=== PATIENT | female | born 1970 | race Caucasian/White ===

== ENCOUNTER 2020-02-21 10:14 | Emergency (ER) | payer BC, OTHER ==
[2020-02-21 10:25] VITALS: TEMP 98.6; BMI 35.4
--- OUTSIDE RECORDS SUMMARY | 2020-02-21 10:35 | XMS ---
:1970 Author Organization [facility] Support Name Relationship Address Phone [facility] Unavailable [address] [phone] [place] [address] [address] [place] [address] Re-disclosure Warning The records that you are about to access may contain information from federally- assisted alcohol or drug abuse programs. If such information is present, then the following federally mandated warning applies: This information has been disclosed to you from records protected by federal confidentiality rules (42 CFR part 2). The federal rules prohibit you from making any further disclosure of this information unless further disclosure is expressly permitted by the written consent of the person to whom it pertains or as otherwise permitted by 42 CFR part 2. A general authorization for the release of medical or other information is NOT sufficient for this purpose. The Federal rules restrict any use of the information to criminally investigate or prosecute any alcohol or drug abuse patient.The records that you are about to access may contain highly sensitive health information, the redisclosure of which is protected by Article 27-F of the [facility] Public Health law. If you continue you may haveaccess to information: Regarding HIV / AIDS; Provided by facilities licensed or operated by the [facility] Office of Mental Health; or Provided by the [facility] Office for People With Developmental Disabilities. If such information is present, then the following [facility] mandated warning applies: This information has been disclosed to you from confidential records which are protected by state law. State law prohibits you from making any further disclosure of this information without the specific written consent of the person to whom it pertains, or as otherwise permitted by law. Any unauthorized further disclosure in violation of state law may result in a fine or senior living sentence or both. A general authorization for the release of medical or other information is NOT sufficient authorization for further disclosure. Insurance Providers Payer name Policy type / Policy ID Covered Covered democrat's Policy Plan Coverage type democrat ID relationship to Elizabeth Information elizabeth GHI CBP [id number] SP [id number] [id number] 1 BC PPO [id number] SP [id number] Results ID Date Data Source [id number] 01/28/2020 05:12:00 PM EDT [facility] Name Value Range Interpretation Description Data Sup porting Code Source(s) Document(s ) SARS [facility] coronavirus 2 RNA [Presence] in Unspecified specimen by TEZ with probe detection This lab was ordered by [facility] and reported by [employer]. ID Date Data Source [id number] 01/09/2020 12:00:00 AM EDT [facility] Name Value Range Interpretation Code Description Data Lea rce(s) Supporting Document(s ) 2019-nCoV [facility] RNA XXX TEZ+probe- Imp This lab was ordered by [facility] and reported by [employer] Procedure
[2020-02-21] MEDS ORDERED: SODIUM CHLORIDE 1,000 ML IV STA (10:54)
--- NOTE | 2020-02-21 11:04 | PDOC ---
History of Present Illness - General Chief Complaint: Pain Stated Complaint: STOMACH PAIN Time Seen by Provider: 02/21/20 10:40 History Source: Patient Exam Limitations: No Limitations - History of Present Illness Travel History: No Initial Comments: 02/21/20 10:56 HISTORY OF PRESENT ILLNESS: 49-year-old woman with past medical history of "bacteria in my stomach" who presents to the emergency department for evaluation of abdominal cramping since January 11. Patient reports the pain came on as a cramping sensation which she describes as "twisting of my guts" in January for which she has taken herbal remedies such as lemon juice and garlic with adequate relief of her symptoms although consistently presents but not affecting her life. Over the past 3 days the pain has increased in intensity over the same quality. She states the pain started in the upper abdomen and now she reports is throughout her abdomen. She denies any nausea, vomiting, diarrhea, constipation, dysuria, hematuria, rectal bleeding, vaginal bleeding, vaginal discharge. No recent travel or sick contacts. PAST MEDICAL HISTORY: See HPI SURGICAL HISTORY: Denies ALLERGIES: No known drug allergies REVIEW OF SYSTEMS General/Constitutional: Denies fever or chills. Denies weakness, weight change. HEENT: Denies change in vision. Denies ear pain or discharge. Denies sore throat. Cardiovascular: Denies chest pain or shortness of breath. Respiratory: Denies cough, wheezing, or hemoptysis. Gastrointestinal: See HPI Genitourinary: Denies dysuria, frequency, or change in urination. Musculoskeletal: Denies joint or muscle swelling or pain. Denies neck or back pain. Skin and breasts: Denies rash or easy bruising. Neurologic: Denies headache, vertigo, loss of consciousness, or loss of sensation. Psychiatric: Denies depression or anxiety. Endocrine: Denies increased thirst. Denies abnormal weight change. Hematologic/Lymphatic: Denies anemia, easy bleeding, or history of blood clots. Allergic/Immunologic: Denies hives or skin allergy. Denies latex allergy. PHYSICAL EXAM General Appearance: Well-appearing, appropriately dressed. No apparent distress, no intoxication. HEENT: EOMI, PERRLA, normal ENT inspection, normal voice, TMs normal, pharynx normal. No conjunctival pallor. No photophobia, scleral icterus. Neck: Supple. Trachea midline. No tenderness, rigidity, carotid bruit, stridor, lymphadenopathy, or thyromegaly. Respiratory/Chest: Lungs CTAB. No shortness of breath, chest tenderness, respiratory distress, accessory muscle use. No crackles, rales, rhonchi, stridor, wheezing, dullness Cardiovascular: RRR. S1, S2. No JVD, murmur, bradycardia, tachycardia. Vascular Pulses: Dorsalis-Pedis (R): 2+, Dorsalis-Pedis (L): 2+ Gastrointestinal/Abdominal: Normal bowel sounds. Abdomen soft, non-distended. Right upper quadrant tenderness with guarding. Tender to the left upper and left lower quadrants without guarding. No organomegaly, pulsatile mass, hernia, hepatomegaly, splenomegaly. No CVA tenderness elicited. Past History - Medical History Allergies/Adverse Reactions: Allergies Allergy/AdvReac Type Severity Reaction Status Date / Time No Known Allergies Allergy Verified 02/21/20 10:23 COPD: No - Reproductive History Is Patient Now?: No - Immunization History Immunization Up to Date: No - Psycho-Social/Smoking History Smoking History: Never smoked *Physical Exam - Vital Signs Last Vital Signs Temp Pulse Resp BP Pulse Ox 98.6 F 74 18 106/83 100 02/21/20 10:23 02/21/20 10:23 02/21/20 10:23 02/21/20 10:23 02/21/20 10:23 ED Treatment Course - LABORATORY CBC & Chemistry Diagram: 02/21/20 11:15 02/21/20 11:15 - RADIOLOGY Radiology Studies Ordered: Category Date Time Status GALLBLADDER US [US] Stat Ultrasound 02/21/20 10:55 Ordered Medical Decision Making - Medical Decision Making 02/21/20 11:04 A/P: 49-year-old woman with waxing and waning abdominal pain for 6 weeks worse over the past 3 days Tender to the right upper quadrant with guarding. Tenderness in the left upper and left lower quadrants without guarding Differential diagnosis includes but is not limited to-cholecystitis, pancreatitis, choledocholithiasis, GERD, H. pylori, extensive diverticulitis. Labs including lipase Urinalysis, urine , urine culture Right upper quadrant ultrasound Normal saline 1 L IV bolus Patient is refusing analgesia at this time Reassess 02/21/20 11:56 Laboratory Tests 02/21/20 02/21/20 02/21/20 11:15 11:15 11:15 WBC 9.1 RBC 4.75 Hgb 14.1 Hct 41.7 MCV 87.8 MCH 29.6 MCHC 33.7 RDW 13.3 Plt Count 376 MPV 8.6 Absolute Neuts (auto) 6.4 Neutrophils % 70.1 Lymphocytes % 19.1 Monocytes % 8.6 Eosinophils % 1.7 Basophils % 0.5 Nucleated RBC % 0 Sodium 142 Potassium 4.6 Chloride 108 H Carbon Dioxide 31 Anion Gap 2 L BUN 7.4 Creatinine 0.8 Est GFR (CKD-EPI)AfAm 101.75 Est GFR (CKD-EPI)NonAf 87.79 Random Glucose 94 Calcium 9.1 Total Bilirubin 0.8 AST 23 ALT 36 Alkaline Phosphatase 115 Total Protein 7.1 Albumin 3.3 L Lipase 89 Urine Color Yellow Urine Appearance Clear Urine pH 8.0 Ur Specific [place] 1.012 Urine Protein Negative Urine Glucose (UA) Negative Urine Ketones Negative Urine Blood Negative Urine Nitrite Negative Urine Bilirubin Negative Urine Urobilinogen 0.2 Ur Leukocyte Esterase Trace Urine WBC (Auto) 6 Urine RBC (Auto) 10 Urine Casts (Auto) 1 U Epithel Cells (Auto) 25 Urine Bacteria (Auto) 725 Urine HCG, Qual Negative Urinalysis likely due to contamination. Will await results of culture prior to treating. Remainder of laboratory testing is grossly unremarkable. Pending right upper quadrant ultrasound for disposition. 02/21/20 12:47 Ultrasound as read by Dr. Cronin: Normal gallbladder and biliary tree. Mild hepatomegaly diffuse fatty infiltration of the liver. Patient is currently asymptomatic. I will discharge home to follow-up with GI for continued evaluation. I would defer further imaging this patient has no white count and is without guarding. I discussed the physical exam findings, ancillary test results and final diagnoses with the patient. I answered all of the patient's questions. The patient was satisfied with the care received and felt comfortable with the discharge plan and treatment plan. The patient will call their primary care physician within 24 hours to arrange follow-up and will return to the Emergency Department with any new, persistent or worsening symptoms. Portions of this note have been documented using voice recognition software. As a result, errors may occur in the heading pinner process. Effort has been made to correct all grammatical and heading pinner error, but some may have been missed which may produce sporadic inaccurate heading pinner or nonsensical phrases. Discharge - Discharge Information Problems reviewed: Yes Clinical Impression/Diagnosis: Gastroenteritis Condition: Stable Disposition: HOME - Admission No - Follow up/Referral Referrals: Jose Espinosa MD [Staff Physician] - - Patient Discharge Instructions Additional Instructions: Rest, drink lots of fluids: Teas, water, soups Natalie shelia, carbonated beverages for the bubbles May try peppermint teas Avoid heavy , spicy or fatty foods until symptoms have resolved Avoid contact with others until fevers and symptoms resolved Lots of handwashing and good hygiene Continue [id number] medications for symptomatic relief Tylenol or Motrin for fever and pain Followup with private physician in one to 2 days as needed Return to emergency department for worsened symptoms, fevers, dehydration - Post Discharge Activity
[2020-02-21 11:28] LABS: BASO % 0.5 % (0-2.0); EOS % 1.7 % (0-4.5); HEMATOCRIT 41.7 % (32.4-45.2); HEMOGLOBIN 14.1 GM/dL (10.7-15.3); LYMPH % 19.1 % (8-40); MCH 29.6 pg (25.7-33.7); MCHC 33.7 g/dl (32.0-36.0); MEAN CELL VOLUME 87.8 fl (80-96); MEAN PLT VOLUME 8.6 fl (7.5-11.1); MONO % 8.6 % (3.8-10.2); NEUT % 70.1 % (42.8-82.8); PLATELET COUNT 376 K/MM3 (134-434); RBC 4.75 M/mm3 (3.60-5.2); RDW 13.3 % (11.6-15.6); WHITE BLOOD COUNT 9.1 K/mm3 (4.0-10.0)
[2020-02-21 11:34] LABS: EPI CELLS 25 /uL (0-25.1); HYALINE CASTS 1 /uL (0-3.1); URINE APPEARANCE CLEAR; URINE BACTERIA 725 /uL (0-1359); URINE BILIRUBIN NEGATIVE (NEGATIVE); URINE COLOR YELLOW; URINE GLUCOSE (UA) NEGATIVE (NEGATIVE); URINE KETONE NEGATIVE (NEGATIVE); URINE LEUK ESTERASE TRACE (NEGATIVE); URINE NITRITE NEGATIVE (NEGATIVE); URINE PROTEIN NEGATIVE (NEGATIVE); URINE RBC 10 /uL (0-23.9); URINE UROBILINOGEN 0.2 mg/dL (0.2-1.0); URINE WBC 6 /uL (0-25.8)
[2020-02-21 11:39] LABS: HCG,QUALITATIVE URINE Negative
[2020-02-21 11:46] LABS: POTASSIUM 4.6 mmol/L (3.5-5.1)
[2020-02-21 11:48] LABS: ALBUMIN 3.3 g/dl (3.4-5.0); BLOOD UREA NITROGEN 7.4 mg/dL (7-18); CALCIUM 9.1 mg/dL (8.5-10.1)
[2020-02-21 11:51] LABS: CREATININE 0.8 mg/dL (0.55-1.3)
[2020-02-21 11:53] LABS: BILIRUBIN,TOTAL 0.8 mg/dL (0.2-1); TOT PROT 7.1 g/dl (6.4-8.2)
[2020-02-21 13:28] VITALS: BP 114/75; PULSE 76
== END 2020-02-21 13:26 | disposition home or self-care (01) ==
LOC: JER 10:14
PROC: 3E0337Z Introduction of Electrolytic and Water Balance Substance into Peripheral Vein, Percutaneous Approach (ICD-10-PCS; principal; 2020-02-21)
DX: K52.9 Noninfective gastroenteritis and colitis, unspecified (principal)
CPT/HCPCS: 36415; 76705-TC; 80053; 81003; 83690; 84703; 85025; 87086; 99285-25

== ENCOUNTER 2023-04-19 01:26 | Emergency (ER) | payer BC, OTHER ==
[2023-04-19 02:07] VITALS: BMI 35.4
[2023-04-19 05:38] LABS: PH,URINE 5.5 (5.0-8.0); URINE APPEARANCE CLEAR; URINE BILIRUBIN NEGATIVE (NEGATIVE); URINE COLOR YELLOW; URINE GLUCOSE (UA) NEGATIVE (NEGATIVE); URINE KETONE NEGATIVE (NEGATIVE); URINE LEUK ESTERASE NEGATIVE (NEGATIVE); URINE NITRITE NEGATIVE (NEGATIVE); URINE PROTEIN NEGATIVE (NEGATIVE); URINE UROBILINOGEN 0.2 mg/dL (0.2-1.0)
[2023-04-19] MEDS ORDERED: MAG HYDROX/AL HYDROX/SIMETH 30 ML UNIT-DOSE CUP PO ONE (06:27)
[2023-04-19] MEDS ORDERED: FAMOTIDINE 20 MG/50 ML IVPB 20 MG/50 ML MG IVPB ONE (06:27)
[2023-04-19] MEDS ORDERED: ACETAMINOPHEN 1000 MG/100 ML BAG IVPB ONE (06:27)
[2023-04-19] MEDS ORDERED: MAG HYDROX/AL HYDROX/SIMETH 30 ML UNIT-DOSE CUP ONE (06:34)
[2023-04-19] MEDS ORDERED: ACETAMINOPHEN INJECTION 100 ML IVPB ONE (06:34)
[2023-04-19 06:48] LABS: EOS % 4.2 % (0-4.5); HEMATOCRIT 40.9 % (32.4-45.2); HEMOGLOBIN 13.7 GM/dL (10.7-15.3); LYMPH % 37.9 % (8-40); MCH 29.4 pg (25.7-33.7); MCHC 33.5 g/dl (32.0-36.0); MEAN CELL VOLUME 87.8 fl (80-96); MEAN PLT VOLUME 8.7 fl (7.5-11.1); MONO % 10.4 % (3.8-10.2); NEUT % 46.5 % (42.8-82.8); PLATELET COUNT 363 10^3/uL (134-434); RBC 4.66 M/mm3 (3.60-5.2); RDW 13.5 % (11.6-15.6); WHITE BLOOD COUNT 6.2 K/mm3 (4.0-10.0)
[2023-04-19 07:03] LABS: POTASSIUM 4.4 mmol/L (3.5-5.1)
[2023-04-19 07:06] LABS: ALBUMIN 3.5 g/dl (3.4-5.0); CALCIUM 8.8 mg/dL (8.5-10.1)
[2023-04-19 07:07] LABS: BLOOD UREA NITROGEN 8.4 mg/dL (7-18)
[2023-04-19 07:09] LABS: CREATININE 0.8 mg/dL (0.55-1.3)
[2023-04-19 07:11] LABS: BILIRUBIN,TOTAL 0.8 mg/dL (0.2-1); TOT PROT 7.1 g/dl (6.4-8.2)
[2023-04-19 07:20] VITALS: BP 135/90; PULSE 56; RESP 16; TEMP 98.2
== END 2023-04-19 09:32 | disposition home or self-care (01) ==
LOC: JER 01:26
PROC: 3E033GC Introduction of Other Therapeutic Substance into Peripheral Vein, Percutaneous Approach (ICD-10-PCS; principal; 2023-04-19)
PROC: 3E033NZ Introduction of Analgesics, Hypnotics, Sedatives into Peripheral Vein, Percutaneous Approach (ICD-10-PCS; 2023-04-19)
DX: R10.13 Epigastric pain (principal); R10.11 Right upper quadrant pain; Z20.822 Contact with and (suspected) exposure to COVID-19
CPT/HCPCS: 0241U-QW; 36415; 74177-TC; 80053; 81003; 83690; 84484; 85025; 87086; 93005; 93010; 99285-25; Q9967